=== PATIENT | male | born 1955 | race African-American/Black ===

== ENCOUNTER 2019-04-22 15:41 | Emergency (ER) | payer OTHER ==
[2019-04-22] MEDS ORDERED: SODIUM CHLORIDE 0.9% 1,000 ML IV STA (15:56)
--- NOTE | 2019-04-22 15:57 | ED ---
Neuro HPI - General Stated Complaint: rt hand/arm tingling Time Seen by Provider: 04/22/19 15:46 Source: RN notes reviewed, old records reviewed - History of Present Illness Is the patient presenting with stroke symptoms?: No -: hour(s) Initial Comments: This is a 63-year-old male the ER for evaluation. Patient currently going through EtOH abuse. Patient coming in for [place] for no recent out of right arm right hand. Symptoms are completely resolved upon arrival. No history of stroke. No history of heart disease. Denies any recent drug or alcohol abuse. Patient denies any current complaints. Location: right arm Place: home ([place]) Severity: mild Quality: numb, tingling ((Hand) Improves With: time Worsens With: none On Anticoagulants: No Context: gradual onset Associated Symptoms: denies other symptoms Treatments Prior to Arrival: none - Related Data Home Medications: Home Medications Medication Instructions Recorded Confirmed Acetaminophen Tab [Tylenol Tab] 650 mg PO Q4H PRN 04/22/19 04/22/19 Chlorpheniramine Maleate 4 mg PO Q4H PRN 04/22/19 04/22/19 [Chlor-Trimeton] Folic Acid 1 mg PO DAILY 04/22/19 04/22/19 Gabapentin [Neurontin] 300 mg PO HS 04/22/19 04/22/19 Ibuprofen [Motrin] 600 mg PO Q6H PRN 04/22/19 04/22/19 Lisinopril [Zestril] 20 mg PO DAILY 04/22/19 04/22/19 Magnesium Oxide [Mag-Ox] 400 mg PO DAILY 04/22/19 04/22/19 Multivitamin [Multivitamins Adult 1 tab PO DAILY 04/22/19 04/22/19 Gummies] Mylanta 30 ml PO Q4H PRN 04/22/19 04/22/19 Simvastatin 40 mg PO HS 04/22/19 04/22/19 Thiamine HCl [Vitamin B-1] 100 mg PO DAILY 04/22/19 04/22/19 traZODone HCL 50 - 150 mg PO HS 04/22/19 04/22/19 Allergies/Adverse Reactions: Allergies Allergy/AdvReac Type Severity Reaction Status Date / Time Fish Containing Products Allergy Unknown Verified 04/22/19 17:04 methocarbamol [From Robaxin] Allergy Unknown Verified 04/22/19 17:04 Childhood shellfish derived [Shellfish] Allergy Unknown Verified 04/22/19 17:04 Review of Systems ROS Statement: Those systems with pertinent positive or pertinent negative responses have been documented in the HPI. ROS Other: All systems not noted in ROS Statement are negative. General Exam - General Exam Comments Initial Comments: NIH of 0 General appearance: alert, in no apparent distress Head exam: Present: atraumatic, normocephalic, normal inspection Eye exam: Present: normal appearance, PERRL, EOMI. Absent: scleral icterus, conjunctival injection, periorbital swelling ENT exam: Present: normal exam, mucous membranes moist Neck exam: Present: normal inspection. Absent: tenderness, meningismus, lymphadenopathy Respiratory exam: Present: normal lung sounds bilaterally. Absent: respiratory distress, wheezes, rales, rhonchi, stridor Cardiovascular Exam: Present: regular rate, normal rhythm, normal heart sounds. Absent: systolic murmur, diastolic murmur, rubs, gallop, clicks GI/Abdominal exam: Present: soft, normal bowel sounds. Absent: distended, tenderness, guarding, rebound, rigid Extremities exam: Present: normal inspection, full ROM, normal capillary refill. Absent: tenderness, pedal edema, joint swelling, calf tenderness Back exam: Present: normal inspection Neurological exam: Present: alert, oriented X3, CN II-XII intact Psychiatric exam: Present: normal affect, normal mood Skin exam: Present: warm, dry, intact, normal color. Absent: rash Stroke MDM - Lab Data Result diagrams: 04/22/19 16:15 04/22/19 16:15 Lab Results 04/22/19 04/22/19 04/22/19 Range/Units 16:15 16:15 16:15 WBC 6.6 (3.8-10.6) k/uL RBC 5.35 (4.30-5.90) m/uL Hgb 15.0 (13.0-17.5) gm/dL Hct 46.3 (39.0-53.0) % MCV 86.5 (80.0-100.0) fL MCH 28.0 (25.0-35.0) pg MCHC 32.4 (31.0-37.0) g/dL RDW 17.7 H (11.5-15.5) % Plt Count 203 (150-450) k/uL Neutrophils % 80 % Lymphocytes % 11 % Monocytes % 5 % Eosinophils % 2 % Basophils % 1 % Neutrophils # 5.3 (1.3-7.7) k/uL Lymphocytes # 0.7 L (1.0-4.8) k/uL Monocytes # 0.3 (0-1.0) k/uL Eosinophils # 0.2 (0-0.7) k/uL Basophils # 0.0 (0-0.2) k/uL Anisocytosis Slight PT 10.4 (9.0-12.0) sec INR 1.0 (<1.2) APTT 24.7 (22.0-30.0) sec Sodium 140 (137-145) mmol/L Potassium 4.5 (3.5-5.1) mmol/L Chloride 105 (98-107) mmol/L Carbon Dioxide 26 (22-30) mmol/L Anion Gap 9 mmol/L BUN 10 (9-20) mg/dL Creatinine 0.76 (0.66-1.25) mg/dL Est GFR (CKD-EPI)AfAm >90 (>60 ml/min/1.73 sqM) Est GFR (CKD-EPI)NonAf >90 (>60 ml/min/1.73 sqM) Glucose 115 H (74-99) mg/dL Calcium 9.1 (8.4-10.2) mg/dL Phosphorus 3.4 (2.5-4.5) mg/dL Magnesium 1.8 (1.6-2.3) mg/dL Total Bilirubin 0.7 (0.2-1.3) mg/dL AST 29 (17-59) U/L ALT 19 L (21-72) U/L Alkaline Phosphatase 55 (38-126) U/L Creatine Kinase 35 L (55-170) U/L Troponin I (0.000-0.034) ng/mL Total Protein 7.0 (6.3-8.2) g/dL Albumin 4.2 (3.5-5.0) g/dL 04/22/19 Range/Units 16:15 WBC (3.8-10.6) k/uL RBC (4.30-5.90) m/uL Hgb (13.0-17.5) gm/dL Hct (39.0-53.0) % MCV (80.0-100.0) fL MCH (25.0-35.0) pg MCHC (31.0-37.0) g/dL RDW (11.5-15.5) % Plt Count (150-450) k/uL Neutrophils % % Lymphocytes % % Monocytes % % Eosinophils % % Basophils % % Neutrophils # (1.3-7.7) k/uL Lymphocytes # (1.0-4.8) k/uL Monocytes # (0-1.0) k/uL Eosinophils # (0-0.7) k/uL Basophils # (0-0.2) k/uL Anisocytosis PT (9.0-12.0) sec INR (<1.2) APTT (22.0-30.0) sec Sodium (137-145) mmol/L Potassium (3.5-5.1) mmol/L Chloride (98-107) mmol/L Carbon Dioxide (22-30) mmol/L Anion Gap mmol/L BUN (9-20) mg/dL Creatinine (0.66-1.25) mg/dL Est GFR (CKD-EPI)AfAm (>60 ml/min/1.73 sqM) Est GFR (CKD-EPI)NonAf (>60 ml/min/1.73 sqM) Glucose (74-99) mg/dL Calcium (8.4-10.2) mg/dL Phosphorus (2.5-4.5) mg/dL Magnesium (1.6-2.3) mg/dL Total Bilirubin (0.2-1.3) mg/dL AST (17-59) U/L ALT (21-72) U/L Alkaline Phosphatase (38-126) U/L Creatine Kinase (55-170) U/L Troponin I <0.012 (0.000-0.034) ng/mL Total Protein (6.3-8.2) g/dL Albumin (3.5-5.0) g/dL - NIH Stroke Scale 1a. Level of Consciousness: (0) alert 1b. LOC Questions: (0) answers correctly 1c. LOC Commands: (0) performs tasks correctly 2. Best Gaze: (0) normal 3. Visual: (0) no visual loss 4. Facial Palsy: (0) normal symmetrical movement 5a. Motor Arm Left: (0) no drift 5b. Motor Arm Right: (0) no drift 6a. Motor Leg Left: (0) no drift 6b. Motor Leg Right: (0) no drift 7. Limb Ataxia: (0) absent 8. Sensory: (0) normal 9. Best Language: (0) no aphasia 10. Dysarthria: (0) normal 11. Extinction/Inattention: (0) no abnormality - Thrombolytic Inclusion/Exclusion Thrombolytic Contraindications: Rapidly Improving s/s (Patient not a TPA Secondary to no significant symptoms currently) - Medical Decision Making 63 male the ER for evasive paresthesias right upper extremity, patient encouraged to start taking aspirin daily. Patient can be discharged home - Radiology Data Radiology results: report reviewed (CT brain is negative for acute disease), image reviewed - EKG Data -: EKG Interpreted by Me (EKG shows sinus rhythm rate of 72, OR 150, QRS 74, QTc 411) Course Vital Signs 04/22/19 04/22/19 15:55 16:38 Temperature 100.5 F H Pulse Rate 74 68 Respiratory 18 16 Rate Blood Pressure 158/100 163/95 O2 Sat by Pulse 98 100 Oximetry Disposition Clinical Impression: Transient cerebral ischemia, Right hand paresthesia Disposition: HOME SELF-CARE Condition: Good Instructions (If sedation given, give patient instructions): Paresthesia (ED), Transient Ischemic Attack (ED) Is patient prescribed a controlled substance at d/c from ED?: No Referrals: Nonstaff,Physician [Primary Care Provider] - 1-2 days
[2019-04-22 16:26] LABS: Anisocytosis Slight; Basophils % (A) 1 %; Eosinophils # (A) 0.2 k/uL (0-0.7); Eosinophils % (A) 2 %; HCT 46.3 % (39.0-53.0); Lymphocytes # (A) 0.7 k/uL (1.0-4.8); Lymphocytes % (A) 11 %; MCHC 32.4 g/dL (31.0-37.0); MCV 86.5 fL (80.0-100.0); Mean Platelet Volume 7.7; Monocytes # (A) 0.3 k/uL (0-1.0); Monocytes % (A) 5 %; Neutrophils # (A) 5.3 k/uL (1.3-7.7); Neutrophils % (A) 80 %; Platelet Count 203 k/uL (150-450); RBC 5.35 m/uL (4.30-5.90); RDW 17.7 % (11.5-15.5); WBC 6.6 k/uL (3.8-10.6)
[2019-04-22] MEDS ORDERED: IBUPROFEN 800 MG TAB PO STA (16:31)
[2019-04-22] MEDS ORDERED: ACETAMINOPHEN TAB 500 MG TAB PO STA (16:31)
[2019-04-22 16:35] LABS: ALT 19 U/L (21-72); AST 29 U/L (17-59); African American GFR (CKD) >90 (>60 ml/min/1.73 sqM); Albumin 4.2 g/dL (3.5-5.0); Alkaline Phosphatase 55 U/L (38-126); Anion Gap 9 mmol/L; Blood Urea Nitrogen 10 mg/dL (9-20); Calcium 9.1 mg/dL (8.4-10.2); Carbon Dioxide 26 mmol/L (22-30); Chloride 105 mmol/L (98-107); Creatine Kinase 35 U/L (55-170); Glucose 115 mg/dL (74-99); Magnesium 1.8 mg/dL (1.6-2.3); Phosphorus 3.4 mg/dL (2.5-4.5); Potassium 4.5 mmol/L (3.5-5.1); Sodium 140 mmol/L (137-145); Total Bilirubin 0.7 mg/dL (0.2-1.3)
[2019-04-22 16:38] LABS: Partial Thromboplastin Time 24.7 sec (22.0-30.0); Prothrombin Time 10.4 sec (9.0-12.0)
[2019-04-22 16:41] VITALS: RESP 16
--- NOTE | 2019-04-22 16:47 | CT ---
EXAMINATION TYPE: CT brain wo con DATE OF EXAM: 04/22/2019 COMPARISON: None HISTORY: Weakness, right hand tingling. CT DLP: 1076.4 mGycm Automated exposure control for dose reduction was used. FINDINGS: There is mild cerebral cortical atrophy. There is no mass effect nor midline shift. There is no sign of intracranial hemorrhage. Calvarium is intact. Skull base is intact. There is fluid levels in the m axillary sinuses. There is moderate mucosal thickening in the ethmoid sinus. IMPRESSION: NO ACUTE INTRACRANIAL ABNORMALITY. SINUSITIS.
[2019-04-22] MEDS ORDERED: ASPIRIN 81 MG PO STA (17:33)
[2019-04-22 18:45] VITALS: BP 143/97; PULSE 93; TEMP 97.9
== END 2019-04-22 18:44 | disposition home or self-care (01) ==
LOC: EC 15:41
DX: G45.9 Transient cerebral ischemic attack, unspecified (principal); R29.700 NIHSS score 0; Z79.899 Other long term (current) drug therapy; Z88.8 Allergy status to other drugs, medicaments and biological substances; Z91.013 Allergy to seafood
CPT/HCPCS: 36415; 70450; 80053; 82550; 83735; 84100; 84484; 85025; 85610; 85730; 93005; 99285